=== PATIENT | female | born 2000 | race American Indian/Alaskan Native ===

== ENCOUNTER 2021-08-26 16:28 | Emergency (ER) | payer SELFPAY ==
[2021-08-26 17:21] VITALS: BP 108/70
[2021-08-26] MEDS ORDERED: PENICILLIN G BENZATHINE 1.2 MILLION UNIT/2 ML INJ IM ONE (17:57)
[2021-08-26] MEDS ORDERED: KETOROLAC 60 MG/2 ML INJ IM ONE (17:59)
[2021-08-26] MEDS ORDERED: DEXAMETHASONE 4 MG TAB PO ONE (17:59)
--- NOTE | 2021-08-26 18:03 | Emergency Department Report ---
ED ENT HPI - General Chief complaint: Sore Throat Stated complaint: THROAT/EAR PAIN Time Seen by Provider: 08/26/21 17:33 Source: patient Mode of arrival: Ambulatory Limitations: No Limitations - History of Present Illness Initial comments: 21-year-old female presents to the emergency department for evaluation of 2-day history of sore throat, earache, and swelling to left throat. She states she is unsure if she had a fever but has felt warm, and she denies headache, abdominal pain, and cough. She denies any sick contacts. MD complaint: sore throat, ear pain -: Gradual, days(s) (To) Location: L ear, throat Severity: severe Severity scale (0 -10): 9 Quality: burning, aching Consistency: constant Worsens with: swallowing Associated Symptoms: pain with swallowing, sore throat. denies: fever, cough, gum swelling, toothache, tinnitus, hearing loss, discharge from ear, rhinorrhea - Related Data Previous Rx's Medication Instructions Recorded Last Taken Type Nystas/Diphen/Xyl Visc/Mylanta 30 ml MM Q4H PRN #240 ml 08/26/21 Unknown Rx [Magic Mouthwash] Allergies Allergy/AdvReac Type Severity Reaction Status Date / Time No Known Allergies Allergy Unverified 08/26/21 17:18 ED Dental HPI - General Chief complaint: Sore Throat Stated complaint: THROAT/EAR PAIN Time Seen by Provider: 08/26/21 17:33 Source: patient Mode of arrival: Ambulatory Limitations: No Limitations - Related Data Previous Rx's Medication Instructions Recorded Last Taken Type Nystas/Diphen/Xyl Visc/Mylanta 30 ml MM Q4H PRN #240 ml 08/26/21 Unknown Rx [Magic Mouthwash] Allergies Allergy/AdvReac Type Severity Reaction Status Date / Time No Known Allergies Allergy Unverified 08/26/21 17:18 ED Review of Systems ROS: Stated complaint: THROAT/EAR PAIN Other details as noted in HPI Comment: All other systems reviewed and negative Constitutional: malaise. denies: chills, diaphoresis, fever, weakness Eyes: denies: eye pain, eye discharge ENT: ear pain, throat pain. denies: dental pain, hearing loss, epistaxis, congestion Respiratory: denies: cough, shortness of breath Cardiovascular: denies: chest pain, palpitations, dyspnea on exertion, syncope Endocrine: no symptoms reported Gastrointestinal: denies: abdominal pain, nausea, vomiting, diarrhea, hematemesis, melena, hematochezia Genitourinary: denies: urgency, dysuria, frequency, hematuria Musculoskeletal: denies: back pain Skin: denies: rash, lesions Neurological: denies: headache, weakness Psychiatric: denies: anxiety Hematological/Lymphatic: denies: easy bleeding, easy bruising ED Past Medical Hx - Medications Home Medications: Home Medications Medication Instructions Recorded Confirmed Last Taken Type Nystas/Diphen/Xyl Visc/Mylanta 30 ml MM Q4H PRN #240 ml 08/26/21 Unknown Rx [Magic Mouthwash] ED Physical Exam - General Limitations: No Limitations General appearance: alert, in no apparent distress - Head Head exam: Present: atraumatic, normocephalic - Eye Eye exam: Present: normal appearance. Absent: conjunctival injection - ENT ENT exam: Present: TM's normal bilaterally, normal external ear exam. Absent: normal orophraynx (Noted to have swelling to bilateral tonsils left greater than white with exudate over entire left tonsil. Noted to have erythema and exudate in posterior oropharynx) - Expanded ENT Exam Expanded Ear exam: Present: normal external inspection Mouth exam: Absent: normal external inspection Throat exam: Positive: tonsillar erythema, tonsillomegaly, tonsillar exudate. Negative: normal inspection - Neck Neck exam: Present: normal inspection, lymphadenopathy (Anterior cervical) - Respiratory Respiratory exam: Present: normal lung sounds bilaterally. Absent: respiratory distress, wheezes, rales, rhonchi, stridor, chest wall tenderness - Cardiovascular Cardiovascular Exam: Present: tachycardia, normal heart sounds - GI/Abdominal GI/Abdominal exam: Present: soft, normal bowel sounds. Absent: distended, tenderness, guarding, rebound, rigid - Extremities Exam Extremities exam: Present: normal inspection - Back Exam Back exam: Present: normal inspection. Absent: CVA tenderness (R), CVA tenderness (L) - Neurological Exam Neurological exam: Present: alert, oriented X3 - Psychiatric Psychiatric exam: Present: normal affect, normal mood - Skin Skin exam: Present: warm, dry, intact, normal color ED Course Vital Signs 08/26/21 17:20 Temperature 99.7 F H Pulse Rate 129 H Respiratory 16 Rate Blood Pressure 108/70 O2 Sat by Pulse 97 Oximetry ED Medical Decision Making - Medical Decision Making 21-year-old female presents to the emergency department for evaluation of 2-day history of sore throat, earache, and swelling to left throat. She states she is unsure if she had a fever but has felt warm, and she denies headache, abdominal pain, and cough. She denies any sick contacts. Centor score of 4 with swelling and exudate to tonsils, low-grade fever, and anterior cervical lymphadenopathy. Patient will be treated for strep throat with by saline injection, Toradol for pain, and one-time dose of steroids for inflammation. Patient will be discharged home with a prescription for Magic m outhwash to use as needed. She was advised to follow-up in the emergency department if no improvement or worsening symptoms. She verbalized understanding of and agreement with plan of care. Critical care attestation.: If time is entered above; I have spent that time in minutes in the direct care of this critically ill patient, excluding procedure time. ED Disposition Clinical Impression: Exudative pharyngitis Disposition: 01 HOME / SELF CARE / HOMELESS Is pt being admited?: No Does the pt Need Aspirin: No Condition: Stable Instructions: Strep Throat, Adult, [id number], Pharyngitis, [id number] Additional Instructions: Take medications as prescribed. Use Tylenol and ibuprofen as needed for fever. Follow-up with primary care provider if no improvement or worsening symptoms. Prescriptions: Nystas/Diphen/Xyl Visc/Mylanta [Magic Mouthwash] 30 ml MM Q4H PRN #240 ml PRN Reason: Sore Throat Referrals: OG IZAGUIRRE MD [Referring] - 3-5 Days Forms: Work/School Release Form(ED) Time of Disposition: 18:03
== END 2021-08-26 18:30 | disposition home or self-care (01) ==
LOC: ED 16:28
DX: J02.9 Acute pharyngitis, unspecified (principal); H92.02 Otalgia, left ear
CPT/HCPCS: 96372; 99282; J0561; J1885; J8540

== ENCOUNTER 2021-08-31 22:47 | Emergency (ER) | payer SELFPAY ==
[2021-09-01 00:19] LABS: Basophils % (Auto) 0.3 % (0.0-1.8); Eosinophils # (Auto) 0.1 K/mm3 (0.0-0.4); Eosinophils % (Auto) 1.8 % (0.0-4.3); Hematocrit 36.1 % (30.3-42.9); Hemoglobin 12.7 gm/dl (10.1-14.3); Lymphocytes % (Auto) 28.1 % (13.4-35.0); Mean Corpuscular HGB Conc 35 % (30-34); Mean Corpuscular Volume 89 fl (79-97); Monocytes # (Auto) 0.8 K/mm3 (0.0-0.8); Monocytes % (Auto) 11.1 % (0.0-7.3); Platelet Count 431 K/mm3 (140-440); Red Blood Count 4.05 M/mm3 (3.65-5.03); Red Cell Distribution Width 14.9 % (13.2-15.2)
[2021-09-01] MEDS ORDERED: ONDANSETRON 4 MG ODT TAB PO ONE (00:20)
[2021-09-01] MEDS ORDERED: KETOROLAC 30 MG/1 ML INJ IM ONE (00:20)
[2021-09-01] MEDS ORDERED: dexAMETHasone 20 MG/5 ML VIAL IM ONE (00:20)
[2021-09-01] MEDS ORDERED: diazePAM 5 MG TAB PO ONE (00:21)
[2021-09-01 00:27] VITALS: BP 99/66
[2021-09-01 00:31] LABS: Alanine Aminotransferase 14 units/L (7-56); Blood Urea Nitrogen 8 mg/dL (7-17); Hemolysis Index 8
[2021-09-01 00:42] LABS: BUN/Creatinine Ratio 16
[2021-09-01] MEDS ORDERED: POTASSIUM CHLORIDE ER 20 MEQ TAB PO ONE (00:52)
[2021-09-01 01:00] LABS: Bacteria,Urine 1+ /HPF (Negative); Bilirubin,Urine NEG (Negative); Blood,Urine LG (Negative); Color,Urine Amber (Yellow); Mucus,Urine 3+ /HPF
[2021-09-01 01:04] LABS: RBC,Urine > 182.0 /HPF (0.0-6.0)
--- NOTE | 2021-09-01 01:28 | Emergency Department Report ---
ED General Adult HPI - General Chief complaint: Nausea/Vomiting/Diarrhea Stated complaint: NECK PAIN/SORE THROAT/VOMITING Source: patient Mode of arrival: Ambulatory Limitations: No Limitations - History of Present Illness Initial comments: Patient is a nulliparous 21-year-old -[place] female with no past medical history who presents to the ED with complaint of acute onset persistent nontraumatic right lateral neck pain for the last 2 days with intermittent nausea and vomiting. Patient states that she is unable perform any active range of motion with the neck. Patient denies traumatic injury, chest pain, dizziness, syncope, shortness of breath, traumatic injury, heavy lifting, back pain, change in vision, change in speech, headache, numbness and tingling or we akness of upper extremities bilaterally or cough. MD Complaint: Neck pain; nausea and vomiting -: Sudden, days(s) (2) Location: neck Radiation: non-radiation Severity scale (0 -10): 6 Quality: aching, sharp Consistency: constant Improves with: none Worsens with: movement Associated Symptoms: denies other symptoms, nausea/vomiting. denies: confusion, chest pain, cough, diaphoresis, fever/chills, headaches, loss of appetite, malaise, rash, seizure, shortness of breath, syncope, weakness Treatments Prior to Arrival: none - Related Data Previous Rx's Medication Instructions Recorded Last Taken Type Nystas/Diphen/Xyl Visc/Mylanta 30 ml MM Q4H PRN #240 ml 08/26/21 Unknown Rx [Magic Mouthwash] Baclofen 20 mg PO Q12H PRN #20 tab 09/01/21 Unknown Rx Naproxen 500 mg PO Q12H PRN #30 tab 09/01/21 Unknown Rx Ondansetron [Zofran Odt] 4 mg PO Q8HR PRN #15 tab.rapdis 09/01/21 Unknown Rx Allergies Allergy/AdvReac Type Severity Reaction Status Date / Time No Known Allergies Allergy Unverified 08/26/21 17:18 ED Review of Systems ROS: Stated complaint: NECK PAIN/SORE THROAT/VOMITING Other details as noted in HPI Constitutional: denies: chills, fever Eyes: denies: eye pain, eye discharge, vision change ENT: denies: ear pain, throat pain Respiratory: denies: cough, shortness of breath, wheezing Cardiovascular: denies: chest pain, palpitations Endocrine: no symptoms reported Gastrointestinal: nausea, vomiting. denies: abdominal pain, diarrhea Genitourinary: denies: urgency, dysuria, discharge Musculoskeletal: arthralgia (neck pain). denies: back pain, joint swelling Skin: denies: rash, lesions Neurological: denies: headache, weakness, paresthesias Psychiatric: denies: anxiety, depression Hematological/Lymphatic: denies: easy bleeding, easy bruising ED Past Medical Hx - Past Medical History Previous Medical History?: No - Surgical History Past Surgical History?: No - Medications Home Medications: Home Medications Medication Instructions Recorded Confirmed Last Taken Type Nystas/Diphen/Xyl Visc/Mylanta 30 ml MM Q4H PRN #240 ml 08/26/21 Unknown Rx [Magic Mouthwash] Baclofen 20 mg PO Q12H PRN #20 tab 09/01/21 Unknown Rx Naproxen 500 mg PO Q12H PRN #30 tab 09/01/21 Unknown Rx Ondansetron [Zofran Odt] 4 mg PO Q8HR PRN #15 tab.rapdis 09/01/21 Unknown Rx ED Physical Exam - General Limitations: No Limitations General appearance: alert, in no apparent distress - Head Head exam: Present: atraumatic, normocephalic, normal inspection - Eye Eye exam: Present: normal appearance, PERRL, EOMI Pupils: Present: normal accommodation - ENT ENT exam: Present: normal exam, normal orophraynx, mucous membranes moist, TM's normal bilaterally, normal external ear exam - Neck Neck exam: Present: normal inspection, tenderness (Palpable right lateral cervical muscle tenderness with limited range of motion due to pain). Absent: meningismus, full ROM (Limited range of motion due to pain), lymphadenopathy, thyromegaly - Respiratory Respiratory exam: Present: normal lung sounds bilaterally. Absent: respiratory distress, wheezes, rales, rhonchi, chest wall tenderness, accessory muscle use, decreased breath sounds, prolonged expiratory - Cardiovascular Cardiovascular Exam: Present: regular rate, normal rhythm, normal heart sounds. Absent: systolic murmur, diastolic murmur, rubs, gallop - GI/Abdominal GI/Abdominal exam: Present: soft, normal bowel sounds. Absent: tenderness, guarding, rebound, hyperactive bowel sounds, hypoactive bowel sounds, organomegaly, mass - Extremities Exam Extremities exam: Present: normal inspection, full ROM, normal capillary refill - Back Exam Back exam: Present: normal inspection, full ROM. Absent: tenderness, CVA tenderness (R), CVA tenderness (L), muscle spasm, paraspinal tenderness, vertebral tenderness - Neurological Exam Neurological exam: Present: alert, oriented X3, CN II-XII intact, normal gait, reflexes normal - Psychiatric Psychiatric exam: Present: normal affect, normal mood - Skin Skin exam: Present: warm, dry, intact, normal color. Absent: rash ED Course Vital Signs 08/31/21 23:12 Temperature 98.5 F Pulse Rate 88 Respiratory 18 Rate Blood Pressure 99/66 O2 Sat by Pulse 98 Oximetry ED Medical Decision Making - Lab Data Result diagrams: 08/31/21 23:33 08/31/21 23:33 - Medical Decision Making This is a nulliparous 21-year-old -[place] female with no past medical history who presents to the ED with complaint of acute onset persistent nontraumatic right lateral neck pain for the last 2 days with intermittent nausea and vomiting. Patient states that she is unable perform any active range of motion with the neck. In the ED, patient is alert and oriented x3 and is not in any distress. Patient is hemodynamically stable. Patient was treated for pain in the ED and also given antiemetics. On reevaluation, patient's pain is well controlled with medications. Patient will discharge home on pain medications and advised to follow-up with her primary care physician in 7 to 10 days for reevaluation. Patient is advised return to the ED immediately if symptoms get worse. - Differential Diagnosis Torticollis; cervical strain; muscle spasm; dehydration Critical care attestation.: If time is entered above; I have spent that time in minutes in the direct care of this critically ill patient, excluding procedure time. ED Disposition Clinical Impression: Acute torticollis, Nausea and vomiting in adult patient Posterolateral cervical muscle strain Qualifiers: Encounter type: initial encounter Qualified Code(s): S16.1XXA - Strain of muscle, fascia and tendon at neck level, initial encounter Disposition: HOME / SELF CARE / HOMELESS Is pt being admited?: No Does the pt Need Aspirin: No Condition: Stable Instructions: Nausea and Vomiting, Adult, [id number], Cervical Sprain, Cervical Strain and Sprain Rehab-SportsMed Additional Instructions: All lab test results are reviewed and are all not actionable. Your symptoms sound musculoskeletal muscle strain causing the pain and discomfort. Therefore take medication with food, drink plenty of fluids and follow-up with your primary care physician in 7 to 10 days for reevaluation or return to the ED immediately if symptoms get worse. Prescriptions: Baclofen 20 mg PO Q12H PRN #20 tab PRN Reason: Muscle Spasm Naproxen 500 mg PO Q12H PRN #30 tab PRN Reason: Pain , Severe (7-10) Ondansetron [Zofran Odt] 4 mg PO Q8HR PRN #15 tab.rapdis PRN Reason: Nausea Referrals: AC SALCIDO MD [Primary Care Provider] - 3-5 Days Forms: Work/School Release Form(ED) Time of Disposition: 01:26 Print Language: GEORGIAN
== END 2021-09-01 01:42 | disposition home or self-care (01) ==
LOC: ED 22:47
DX: M43.6 Torticollis (principal); R11.2 Nausea with vomiting, unspecified; S16.1XXA Strain of muscle, fascia and tendon at neck level, initial encounter; X58.XXXA Exposure to other specified factors, initial encounter; Y93.89 Activity, other specified; Y92.89 Other specified places as the place of occurrence of the external cause; Y99.8 Other external cause status
CPT/HCPCS: 36415; 80053; 81001; 85025; 96372; 99283; J1100; J1885; J3490; Q0162